=== PATIENT | female | born 1945 | race African-American/Black ===

== ENCOUNTER 2022-08-04 03:55 | Inpatient (IN) ==
[2022-08-04] MEDS ORDERED: methylPREDNISolone SOD SUC 125 MG/2 ML VIAL IV STA (04:18)
[2022-08-04] MEDS ORDERED: ONDANSETRON 4 MG/2 ML VIAL IV STA (04:18)
[2022-08-04] MEDS ORDERED: FUROSEMIDE 100 MG/10 ML VIAL IV STA (04:18)
[2022-08-04] MEDS ORDERED: NITROGLYCERIN 2% OINT 1 INCH/GM PACK TOP STA (04:18)
[2022-08-04] MEDS ORDERED: ALBUTEROL/IPRATROPIUM 3 ML NEB RESP TX STA (04:18)
[2022-08-04 04:26] LABS: Basophils # 0.1 10*3/uL (0.0-0.2); Basophils % 0.4 % (0.0-0.8); Eosinophils % 0.3 % (0.00-10.9); Immature Granulocytes Absolute 0.29 #; Lymphocytes # 1.5 10*3/uL (1.4-4.0); Lymphocytes % 9.9 % (21.3-54.2); Mean Corpuscular HGB Conc 28.2 GM/DL (32-36); Mean Corpuscular Volume 113.4 FL (87-102); Mean Platelet Volume 9.6 FL (9.6-12.0); Monocytes # 0.9 10*3/uL (0.11-0.8); Monocytes % 6.1 % (1.7-12.7); NRBC # 0.03 10*3/uL; Neutrophils % 81.3 % (38.7-73.9); Platelet Count 247 T/CUMM (130-400); Red Blood Count 3.88 MC/CUMM (3.8-5.5); Red Cell Distribution Width 18.2 % (9.3-17.3); White Blood Count 14.8 T/CUMM (4-12)
[2022-08-04 04:27] LABS: Hemoglobin 12.4 GM/DL (12.0-16.0)
[2022-08-04 04:43] LABS: ABG Base Excess 6.1 MMOL/L (-2.5-2.5); ABG HCO3 29.9 MMOL/L (20-26); ABG Oxygen Saturation 97.3 % (95-100); ABG TCO2 36.5 MMOL/L (23-27); Allen Test Positive
[2022-08-04 04:43] LABS: PT Patient Result 10.8 SECS (10.1-12.1)
[2022-08-04 04:44] LABS: Macrocytosis Slight; Polychromasia Slight; Stomatocytes Slight
[2022-08-04 04:45] LABS: Basophilic Stippling Slight
[2022-08-04 04:45] LABS: ABG PH 7.165 (7.35-7.45)
[2022-08-04 04:46] LABS: Platelet Estimate Adequate
[2022-08-04 04:48] LABS: Alanine Aminotransferase 36 U/L (13-56); Albumin 3.5 G/DL (3.4-5.0); Alkaline Phosphatase 173 U/L (45-117); Aspartate Amino Transferase 37 U/L (0-37); Bilirubin,Total < 0.39 MG/DL (0.20-1.00); Blood Urea Nitrogen 12 MG/DL (7-18); Carbon Dioxide 42 MMOL/L (21-32); Chloride 102 MMOL/L (98-107); Glucose 240 MG/DL (74-106); Osmolality,Calculated 290.1 MOS/KG (273-304); Sodium 142 MMOL/L (136-145); Total Protein 7.4 G/DL (6.4-8.2)
[2022-08-04] MEDS ORDERED: ETOMIDATE 20 MG/10 ML VIAL IV ONE (04:48)
[2022-08-04] MEDS ORDERED: VECURONIUM 10 MG VIAL IV ONE (04:48)
[2022-08-04] MEDS ORDERED: VECURONIUM 10 MG VIAL IV STA (05:04)
[2022-08-04] MEDS ORDERED: ETOMIDATE 20 MG/10 ML VIAL IV STA (05:04)
[2022-08-04 05:12] LABS: Bilirubin,Urine Negative (Negative); Blood, Urine Small mg/dL (Negative); Glucose,Urine (UA) 50 mg/dL (Negative); Hyaline Casts,Urine 7 /LPF (0-3); Ketones,Urine Negative (Negative); Mucus,Urine Occasional /LPF (Occasional); Nitrite,Urine Negative (Negative); Protein,Urine 100 mg/dL (Negative); RBC,Urine 1 /HPF (0-4); Urine Appearance Slightly Hazy (Clear); Urine Color Yellow (Yellow); Urine Specific Gravity 1.018 (1.001-1.035); Urine Urobilinogen < 2.0 eU/dL (<2.0)
[2022-08-04 05:16] LABS: Barbiturates Screen,Urine Negative (Negative); Benzodiazepines Screen,Urine Negative (Negative); Cannabinoid Screen,Urine Negative (Negative); Opiate Screen,Urine Negative (Negative); Phencyclidine Screen,Urine Negative (Negative)
[2022-08-04] MEDS ORDERED: ALBUTEROL 2.5 MG/3 ML NEB RESP TX PRN ×2 (06:12→06:14)
[2022-08-04] MEDS ORDERED: ONDANSETRON 4 MG/2 ML VIAL IV PRN (06:14)
[2022-08-04] MEDS ORDERED: ACETAMINOPHEN 325 MG TABLET PO PRN (06:14)
[2022-08-04] MEDS ORDERED: LACTULOSE 20 GM/30 ML UDCUP PO PRN (06:14)
[2022-08-04] MEDS ORDERED: GLUCAGON 1 MG VIAL IM PRN (06:21)
[2022-08-04] MEDS ORDERED: DEXTROSE 10% 250 ML BAG IV PRN (06:23)
[2022-08-04] MEDS ORDERED: SODIUM CHLORIDE 0.9% 1,000 ML IV SCH (06:30)
[2022-08-04] MEDS: PANTOPRAZOLE 40 MG VIAL IV SCH (06:33)
[2022-08-04] MEDS: cefTRIAXone 2,000 MG in SODIUM CHLORIDE 0.9% 100 ML IV SCH (06:34)
[2022-08-04] MEDS: AZITHROMYCIN INJ 500 MG in SODIUM CHLORIDE 0.9% 250 ML IV SCH (06:37)
[2022-08-04] MEDS: ALBUTEROL/IPRATROPIUM 3 ML NEB RESP TX SCH ×3 (07:25→19:36)
[2022-08-04] MEDS: methylPREDNISolone SOD SUC 40 MG/1 ML VIAL IV SCH ×3 (10:23→23:49)
[2022-08-04] MEDS: ENOXAPARIN 40 MG/0.4 ML SYRINGE SUBCUT SCH (10:26)
[2022-08-04] MEDS: INSULIN GLARGINE 100 UNIT/ML SUBCUT SCH ×2 (11:42→22:01)
[2022-08-04 11:50] LABS: Arterial Base Excess iSTAT 15 MMOL/L (-2.5-2.5); Arterial Bicarbonate iSTAT 44.6 MMOL/L (20-26); Arterial O2 Saturation iSTAT 87 % (95-100); Arterial PCO2 iSTAT 77 MM HG (35-48); Arterial PO2 iSTAT 59 MM HG (80-95); Arterial Total CO2 iSTAT 47 MMO/L (23-27); Arterial pH iSTAT 7.369 (7.35-7.45)
[2022-08-04] MEDS: INSULIN LISPRO 100 UNIT/ML SUBCUT SCH ×3 (12:05→23:49)
[2022-08-04] MEDS ORDERED: FUROSEMIDE 40 MG/4 ML VIAL IV ONE (12:19)
[2022-08-04 15:13] LABS: Arterial Base Excess iSTAT 21 MMOL/L (-2.5-2.5); Arterial Bicarbonate iSTAT 46.5 MMOL/L (20-26); Arterial O2 Saturation iSTAT 97 % (95-100); Arterial PCO2 iSTAT 53 MM HG (35-48); Arterial PO2 iSTAT 78 MM HG (80-95); Arterial Total CO2 iSTAT 48 MMO/L (23-27); Arterial pH iSTAT 7.551 (7.35-7.45)
[2022-08-04 20:43] LABS: Basophils % 0.2 % (0.0-0.8); Hematocrit 43.3 VOL% (35.7-47.0); Hemoglobin 12.8 GM/DL (12.0-16.0); Immature Granulocytes % 1.7 %; Immature Granulocytes Absolute 0.23 #; Lymphocytes # 1.2 10*3/uL (1.4-4.0); Mean Corpuscular HGB Conc 29.6 GM/DL (32-36); Mean Platelet Volume 9.8 FL (9.6-12.0); Monocytes # 1.1 10*3/uL (0.11-0.8); Monocytes % 8.5 % (1.7-12.7); NRBC # 0.04 10*3/uL; Neutrophils % 80.6 % (38.7-73.9); Platelet Count 236 T/CUMM (130-400); Red Blood Count 4.01 MC/CUMM (3.8-5.5); Red Cell Distribution Width 17.8 % (9.3-17.3); White Blood Count 13.2 T/CUMM (4-12)
[2022-08-05] MEDS: ALBUTEROL/IPRATROPIUM 3 ML NEB RESP TX SCH ×4 (00:43→19:35)
[2022-08-05 03:15] LABS: Basophils % 0.2 % (0.0-0.8); Hemoglobin 12.2 GM/DL (12.0-16.0); Immature Granulocytes % 1.1 %; Immature Granulocytes Absolute 0.15 #; Lymphocytes % 7.2 % (21.3-54.2); Mean Corpuscular HGB Conc 30.5 GM/DL (32-36); Mean Corpuscular Volume 103.6 FL (87-102); Mean Platelet Volume 9.8 FL (9.6-12.0); Monocytes # 1.1 10*3/uL (0.11-0.8); Monocytes % 8.4 % (1.7-12.7); NRBC # 0.07 10*3/uL; Neutrophils % 83.1 % (38.7-73.9); Platelet Count 260 T/CUMM (130-400); Red Blood Count 3.86 MC/CUMM (3.8-5.5); Red Cell Distribution Width 18.3 % (9.3-17.3); White Blood Count 13.1 T/CUMM (4-12)
[2022-08-05 03:34] LABS: Albumin 2.9 G/DL (3.4-5.0); Bilirubin,Total 0.6 MG/DL (0.20-1.00); Calcium 8.7 MG/DL (8.5-10.1); Osmolality,Calculated 285.1 MOS/KG (273-304); Potassium 2.9 MMOL/L (3.5-5.1); Total Protein 6.5 G/DL (6.4-8.2)
[2022-08-05 04:00] LABS: Arterial Base Excess iSTAT 23 MMOL/L (-2.5-2.5); Arterial Bicarbonate iSTAT 46.5 MMOL/L (20-26); Arterial O2 Saturation iSTAT 100 % (95-100); Arterial PCO2 iSTAT 44 MM HG (35-48); Arterial PO2 iSTAT 138 MM HG (80-95); Arterial Total CO2 iSTAT 48 MMO/L (23-27); Arterial pH iSTAT 7.636 (7.35-7.45)
[2022-08-05] MEDS: methylPREDNISolone SOD SUC 40 MG/1 ML VIAL IV SCH ×4 (05:36→22:02)
[2022-08-05] MEDS: cefTRIAXone 2,000 MG in SODIUM CHLORIDE 0.9% 100 ML IV SCH (05:36)
[2022-08-05] MEDS: PANTOPRAZOLE 40 MG VIAL IV SCH (05:37)
[2022-08-05] MEDS: INSULIN LISPRO 100 UNIT/ML SUBCUT SCH ×3 (05:45→18:08)
[2022-08-05] MEDS: AZITHROMYCIN INJ 500 MG in SODIUM CHLORIDE 0.9% 250 ML IV SCH (06:10)
[2022-08-05] MEDS: POTASSIUM BICARB EFFERVESCENT 20 MEQ TAB.EFF PER TUBE PRN ×6 (06:31→16:51)
[2022-08-05] MEDS: ENOXAPARIN 40 MG/0.4 ML SYRINGE SUBCUT SCH (08:03)
[2022-08-05] MEDS ORDERED: hydrALAZINE 20 MG/1 ML VIAL IV PRN (09:21)
[2022-08-05] MEDS: LACTULOSE 20 GM/30 ML UDCUP PO SCH ×2 (09:36→21:15)
[2022-08-05] MEDS: MORPHINE 2 MG/1 ML SYRINGE IV PRN (09:47)
[2022-08-05 13:18] LABS: Calcium 8.3 MG/DL (8.5-10.1); Osmolality,Calculated 291.7 MOS/KG (273-304); Potassium 3.5 MMOL/L (3.5-5.1)
[2022-08-05] MEDS: amLODIPine 10 MG TABLET PO SCH (13:55)
[2022-08-05] MEDS: DESITIN 4OZ/NYSTATIN 15 GRAM MIXTURE PASTE TOP SCH ×2 (15:33→21:16)
[2022-08-05] MEDS: carvediloL 25 MG TABLET PO SCH (16:50)
[2022-08-05] MEDS: INSULIN GLARGINE 100 UNIT/ML SUBCUT SCH (21:15)
[2022-08-05] MEDS: buPROPion SR 150 MG TABLET PO SCH (21:15)
[2022-08-06] MEDS: INSULIN LISPRO 100 UNIT/ML SUBCUT SCH ×4 (00:07→17:45)
[2022-08-06] MEDS: ALBUTEROL/IPRATROPIUM 3 ML NEB RESP TX SCH ×4 (00:40→20:01)
[2022-08-06 03:52] LABS: Albumin 2.7 G/DL (3.4-5.0); Bilirubin,Total 0.5 MG/DL (0.20-1.00); Calcium 7.8 MG/DL (8.5-10.1); Osmolality,Calculated 296.6 MOS/KG (273-304); Total Protein 6.1 G/DL (6.4-8.2)
[2022-08-06] MEDS: POTASSIUM BICARB EFFERVESCENT 20 MEQ TAB.EFF PER TUBE PRN ×4 (04:02→09:58)
[2022-08-06 05:05] LABS: Arterial Base Excess iSTAT 13 MMOL/L (-2.5-2.5); Arterial Bicarbonate iSTAT 37.7 MMOL/L (20-26); Arterial O2 Saturation iSTAT 98 % (95-100); Arterial PCO2 iSTAT 46 MM HG (35-48); Arterial PO2 iSTAT 103 MM HG (80-95); Arterial Total CO2 iSTAT 39 MMO/L (23-27); Arterial pH iSTAT 7.522 (7.35-7.45)
[2022-08-06 05:14] LABS: Basophils % 0.1 % (0.0-0.8); Hematocrit 36.8 VOL% (35.7-47.0); Hemoglobin 11.6 GM/DL (12.0-16.0); Immature Granulocytes % 0.9 %; Immature Granulocytes Absolute 0.13 #; Lymphocytes # 0.9 10*3/uL (1.4-4.0); Lymphocytes % 6.3 % (21.3-54.2); Mean Corpuscular HGB Conc 31.5 GM/DL (32-36); Mean Corpuscular Volume 98.9 FL (87-102); Mean Platelet Volume 10.7 FL (9.6-12.0); NRBC # 0.07 10*3/uL; Neutrophils % 85.7 % (38.7-73.9); Platelet Count 265 T/CUMM (130-400); Red Blood Count 3.72 MC/CUMM (3.8-5.5); Red Cell Distribution Width 18.3 % (9.3-17.3); White Blood Count 14.1 T/CUMM (4-12)
[2022-08-06] MEDS: AZITHROMYCIN INJ 500 MG in SODIUM CHLORIDE 0.9% 250 ML IV SCH (05:30)
[2022-08-06] MEDS: cefTRIAXone 2,000 MG in SODIUM CHLORIDE 0.9% 100 ML IV SCH (05:46)
[2022-08-06] MEDS: LEVOTHYROXINE 125 MCG TABLET PO SCH (05:47)
[2022-08-06] MEDS: PANTOPRAZOLE 40 MG VIAL IV SCH (05:48)
[2022-08-06] MEDS: methylPREDNISolone SOD SUC 40 MG/1 ML VIAL IV SCH ×4 (05:48→23:24)
[2022-08-06] MEDS: carvediloL 25 MG TABLET PO SCH ×2 (07:55→16:13)
[2022-08-06] MEDS ORDERED: FUROSEMIDE 40 MG/4 ML VIAL IV ONE (08:08)
[2022-08-06] MEDS: buPROPion SR 150 MG TABLET PO SCH ×2 (09:58→21:11)
[2022-08-06] MEDS: amLODIPine 10 MG TABLET PO SCH (09:58)
[2022-08-06] MEDS: POTASSIUM CHLORIDE 10 MEQ TABLET PO SCH (09:58)
[2022-08-06] MEDS: DESITIN 4OZ/NYSTATIN 15 GRAM MIXTURE PASTE TOP SCH ×2 (09:59→21:12)
[2022-08-06] MEDS: ENOXAPARIN 40 MG/0.4 ML SYRINGE SUBCUT SCH (09:59)
[2022-08-06] MEDS: LACTULOSE 20 GM/30 ML UDCUP PO SCH (10:11)
[2022-08-06] MEDS: hydrALAZINE 25 MG TABLET PO SCH ×2 (11:37→21:11)
[2022-08-06] MEDS: INSULIN GLARGINE 100 UNIT/ML SUBCUT SCH (21:11)
[2022-08-07] MEDS: ALBUTEROL/IPRATROPIUM 3 ML NEB RESP TX SCH ×4 (00:27→19:02)
[2022-08-07] MEDS: INSULIN LISPRO 100 UNIT/ML SUBCUT SCH ×5 (00:46→23:30)
[2022-08-07 03:31] LABS: Basophils % 0.1 % (0.0-0.8); Hematocrit 35.8 VOL% (35.7-47.0); Hemoglobin 11.6 GM/DL (12.0-16.0); Immature Granulocytes % 1.1 %; Immature Granulocytes Absolute 0.15 #; Lymphocytes # 0.8 10*3/uL (1.4-4.0); Lymphocytes % 5.9 % (21.3-54.2); Mean Corpuscular HGB Conc 32.4 GM/DL (32-36); Mean Corpuscular Volume 97.5 FL (87-102); Mean Platelet Volume 9.8 FL (9.6-12.0); Monocytes # 0.9 10*3/uL (0.11-0.8); Monocytes % 6.3 % (1.7-12.7); Neutrophils % 86.6 % (38.7-73.9); Platelet Count 249 T/CUMM (130-400); Red Blood Count 3.67 MC/CUMM (3.8-5.5); Red Cell Distribution Width 18.6 % (9.3-17.3); White Blood Count 13.6 T/CUMM (4-12)
[2022-08-07 03:44] LABS: Albumin 2.6 G/DL (3.4-5.0); Bilirubin,Total 0.5 MG/DL (0.20-1.00); Calcium 7.8 MG/DL (8.5-10.1); Potassium 2.8 MMOL/L (3.5-5.1)
[2022-08-07 04:27] LABS: Arterial Base Excess iSTAT 5 MMOL/L (-2.5-2.5); Arterial Bicarbonate iSTAT 29.3 MMOL/L (20-26); Arterial O2 Saturation iSTAT 98 % (95-100); Arterial PCO2 iSTAT 41 MM HG (35-48); Arterial PO2 iSTAT 94 MM HG (80-95); Arterial Total CO2 iSTAT 31 MMO/L (23-27); Arterial pH iSTAT 7.463 (7.35-7.45)
[2022-08-07] MEDS: AZITHROMYCIN INJ 500 MG in SODIUM CHLORIDE 0.9% 250 ML IV SCH (04:45)
[2022-08-07] MEDS: cefTRIAXone 2,000 MG in SODIUM CHLORIDE 0.9% 100 ML IV SCH (05:34)
[2022-08-07] MEDS: methylPREDNISolone SOD SUC 40 MG/1 ML VIAL IV SCH ×3 (05:34→20:15)
[2022-08-07] MEDS: PANTOPRAZOLE 40 MG VIAL IV SCH (05:34)
[2022-08-07] MEDS: LEVOTHYROXINE 125 MCG TABLET PO SCH (05:34)
[2022-08-07] MEDS: POTASSIUM BICARB EFFERVESCENT 20 MEQ TAB.EFF PER TUBE PRN ×4 (05:34→17:55)
[2022-08-07] MEDS: carvediloL 25 MG TABLET PO SCH ×2 (09:28→17:54)
[2022-08-07] MEDS: buPROPion SR 150 MG TABLET PO SCH ×2 (09:28→11:37)
[2022-08-07] MEDS: hydrALAZINE 25 MG TABLET PO SCH ×2 (09:29→20:39)
[2022-08-07] MEDS: amLODIPine 10 MG TABLET PO SCH (09:29)
[2022-08-07] MEDS: POTASSIUM CHLORIDE 10 MEQ TABLET PO SCH (09:29)
[2022-08-07] MEDS: DESITIN 4OZ/NYSTATIN 15 GRAM MIXTURE PASTE TOP SCH ×2 (09:31→20:39)
[2022-08-07] MEDS: ENOXAPARIN 40 MG/0.4 ML SYRINGE SUBCUT SCH (09:31)
[2022-08-07] MEDS: buPROPion 75 MG TABLET PO SCH ×2 (10:58→20:16)
[2022-08-07 15:05] VITALS: BP 122/84
[2022-08-07] MEDS: INSULIN GLARGINE 100 UNIT/ML SUBCUT SCH (20:16)
[2022-08-08 00:17] LABS: Calcium 7.9 MG/DL (8.5-10.1); Osmolality,Calculated 298.8 MOS/KG (273-304)
[2022-08-08] MEDS: POTASSIUM BICARB EFFERVESCENT 20 MEQ TAB.EFF PER TUBE PRN ×4 (00:32→08:58)
[2022-08-08] MEDS: ALBUTEROL/IPRATROPIUM 3 ML NEB RESP TX SCH ×4 (00:52→19:28)
[2022-08-08 03:43] LABS: Basophils % 0.1 % (0.0-0.8); Hematocrit 36.7 VOL% (35.7-47.0); Hemoglobin 11.9 GM/DL (12.0-16.0); Immature Granulocytes % 1.4 %; Immature Granulocytes Absolute 0.17 #; Lymphocytes # 0.8 10*3/uL (1.4-4.0); Lymphocytes % 6.2 % (21.3-54.2); Mean Corpuscular HGB Conc 32.4 GM/DL (32-36); Mean Corpuscular Volume 97.3 FL (87-102); Monocytes # 0.8 10*3/uL (0.11-0.8); Monocytes % 6.4 % (1.7-12.7); NRBC # 0.09 10*3/uL; Neutrophils % 85.9 % (38.7-73.9); Platelet Count 250 T/CUMM (130-400); Red Blood Count 3.77 MC/CUMM (3.8-5.5); Red Cell Distribution Width 18.6 % (9.3-17.3); White Blood Count 12.6 T/CUMM (4-12)
[2022-08-08] MEDS: MORPHINE 2 MG/1 ML SYRINGE IV PRN (03:46)
[2022-08-08] MEDS: DESITIN 4OZ/NYSTATIN 15 GRAM MIXTURE PASTE TOP SCH ×3 (03:50→21:24)
[2022-08-08] MEDS: SKIN HEALING OINT (AQUAPHOR) 50 GM TUBE TOP PRN (03:50)
[2022-08-08 04:12] LABS: Arterial Base Excess iSTAT 1 MMOL/L (-2.5-2.5); Arterial Bicarbonate iSTAT 24.2 MMOL/L (20-26); Arterial O2 Saturation iSTAT 98 % (95-100); Arterial PCO2 iSTAT 34 MM HG (35-48); Arterial PO2 iSTAT 90 MM HG (80-95); Arterial Total CO2 iSTAT 25 MMO/L (23-27); Arterial pH iSTAT 7.461 (7.35-7.45)
[2022-08-08] MEDS: INSULIN LISPRO 100 UNIT/ML SUBCUT SCH ×3 (05:18→17:24)
[2022-08-08 05:22] LABS: Calcium 7.7 MG/DL (8.5-10.1); Osmolality,Calculated 300.6 MOS/KG (273-304); Potassium 3.5 MMOL/L (3.5-5.1)
[2022-08-08] MEDS: cefTRIAXone 2,000 MG in SODIUM CHLORIDE 0.9% 100 ML IV SCH (05:50)
[2022-08-08] MEDS: PANTOPRAZOLE 40 MG VIAL IV SCH (05:55)
[2022-08-08] MEDS: LEVOTHYROXINE 125 MCG TABLET PO SCH (05:59)
[2022-08-08] MEDS: AZITHROMYCIN INJ 500 MG in SODIUM CHLORIDE 0.9% 250 ML IV SCH (06:34)
[2022-08-08 08:43] LABS: Arterial Base Excess iSTAT 1 MMOL/L (-2.5-2.5); Arterial Bicarbonate iSTAT 25.7 MMOL/L (20-26); Arterial O2 Saturation iSTAT 99 % (95-100); Arterial PCO2 iSTAT 38 MM HG (35-48); Arterial PO2 iSTAT 159 MM HG (80-95); Arterial Total CO2 iSTAT 27 MMO/L (23-27); Arterial pH iSTAT 7.433 (7.35-7.45)
[2022-08-08] MEDS: buPROPion 75 MG TABLET PO SCH (08:58)
[2022-08-08] MEDS: hydrALAZINE 25 MG TABLET PO SCH ×2 (08:58→20:39)
[2022-08-08] MEDS: amLODIPine 10 MG TABLET PO SCH (08:58)
[2022-08-08] MEDS: carvediloL 25 MG TABLET PO SCH ×2 (08:58→17:25)
[2022-08-08] MEDS: methylPREDNISolone SOD SUC 40 MG/1 ML VIAL IV SCH ×2 (09:00→20:39)
[2022-08-08] MEDS: POTASSIUM CHLORIDE 10 MEQ TABLET PO SCH (09:00)
[2022-08-08] MEDS: MULTIVITAMIN LIQUID (CENTRUM) 60 ML BOTTLE PO SCH (09:02)
[2022-08-08] MEDS: ENOXAPARIN 40 MG/0.4 ML SYRINGE SUBCUT SCH (09:04)
[2022-08-08] MEDS: buPROPion SR 150 MG TABLET PO SCH (20:39)
[2022-08-08] MEDS: ACETAMINOPHEN/CODEINE 300-30 MG TABLET PO PRN (21:10)
[2022-08-08] MEDS: INSULIN GLARGINE 100 UNIT/ML SUBCUT SCH (21:24)
[2022-08-08] MEDS: QUEtiapine 100 MG TABLET PO SCH (23:12)
[2022-08-09] MEDS: ALBUTEROL/IPRATROPIUM 3 ML NEB RESP TX SCH ×4 (01:00→19:11)
[2022-08-09] MEDS: ACETAMINOPHEN/CODEINE 300-30 MG TABLET PO PRN ×3 (03:54→21:00)
[2022-08-09] MEDS: INSULIN LISPRO 100 UNIT/ML SUBCUT SCH ×5 (04:16→21:02)
[2022-08-09 04:23] LABS: Basophils % 0.1 % (0.0-0.8); Hematocrit 39.6 VOL% (35.7-47.0); Hemoglobin 12.3 GM/DL (12.0-16.0); Immature Granulocytes % 1.5 %; Immature Granulocytes Absolute 0.18 #; Lymphocytes # 0.5 10*3/uL (1.4-4.0); Lymphocytes % 4.6 % (21.3-54.2); Mean Corpuscular HGB Conc 31.1 GM/DL (32-36); Mean Corpuscular Volume 102.3 FL (87-102); Mean Platelet Volume 10.2 FL (9.6-12.0); Monocytes # 0.6 10*3/uL (0.11-0.8); Monocytes % 5.3 % (1.7-12.7); NRBC # 0.04 10*3/uL; Neutrophils % 88.5 % (38.7-73.9); Platelet Count 259 T/CUMM (130-400); Red Blood Count 3.87 MC/CUMM (3.8-5.5); Red Cell Distribution Width 19.3 % (9.3-17.3); White Blood Count 11.7 T/CUMM (4-12)
[2022-08-09 04:32] LABS: Calcium 7.8 MG/DL (8.5-10.1); Osmolality,Calculated 298.6 MOS/KG (273-304); Potassium 3.9 MMOL/L (3.5-5.1)
[2022-08-09 04:56] LABS: Arterial Base Excess iSTAT 0 MMOL/L (-2.5-2.5); Arterial Bicarbonate iSTAT 27.2 MMOL/L (20-26); Arterial O2 Saturation iSTAT 97 % (95-100); Arterial PCO2 iSTAT 55 MM HG (35-48); Arterial PO2 iSTAT 98 MM HG (80-95); Arterial Total CO2 iSTAT 29 MMO/L (23-27); Arterial pH iSTAT 7.302 (7.35-7.45)
[2022-08-09 05:20] LABS: Lymphocytes 8 % (20-55); Platelet Estimate Normal; Total Cells Counted 100
[2022-08-09] MEDS: cefTRIAXone 2,000 MG in SODIUM CHLORIDE 0.9% 100 ML IV SCH (06:03)
[2022-08-09] MEDS: AZITHROMYCIN INJ 500 MG in SODIUM CHLORIDE 0.9% 250 ML IV SCH (06:03)
[2022-08-09] MEDS: PANTOPRAZOLE 40 MG VIAL IV SCH (06:22)
[2022-08-09] MEDS: LEVOTHYROXINE 125 MCG TABLET PO SCH (06:25)
[2022-08-09] MEDS: amLODIPine 10 MG TABLET PO SCH (09:19)
[2022-08-09] MEDS: POTASSIUM BICARB EFFERVESCENT 20 MEQ TAB.EFF PER TUBE PRN (09:19)
[2022-08-09] MEDS: buPROPion SR 150 MG TABLET PO SCH ×2 (09:19→21:01)
[2022-08-09] MEDS: carvediloL 25 MG TABLET PO SCH ×2 (09:19→17:50)
[2022-08-09] MEDS: POTASSIUM CHLORIDE 10 MEQ TABLET PO SCH (09:19)
[2022-08-09] MEDS: hydrALAZINE 25 MG TABLET PO SCH ×2 (09:19→21:01)
[2022-08-09] MEDS: methylPREDNISolone SOD SUC 40 MG/1 ML VIAL IV SCH ×2 (09:20→21:01)
[2022-08-09] MEDS: DESITIN 4OZ/NYSTATIN 15 GRAM MIXTURE PASTE TOP SCH ×2 (09:21→22:27)
[2022-08-09] MEDS: ENOXAPARIN 40 MG/0.4 ML SYRINGE SUBCUT SCH (09:21)
[2022-08-09] MEDS: MULTIVITAMIN LIQUID (CENTRUM) 60 ML BOTTLE PO SCH (09:24)
[2022-08-09] MEDS: ATORVASTATIN 80 MG TABLET PO SCH (21:01)
[2022-08-09] MEDS: QUEtiapine 100 MG TABLET PO SCH (21:01)
[2022-08-09] MEDS: INSULIN GLARGINE 100 UNIT/ML SUBCUT SCH (21:02)
[2022-08-10] MEDS: ALBUTEROL/IPRATROPIUM 3 ML NEB RESP TX SCH ×4 (00:30→19:54)
[2022-08-10 04:03] LABS: Arterial Base Excess iSTAT 1 MMOL/L (-2.5-2.5); Arterial Bicarbonate iSTAT 27.9 MMOL/L (20-26); Arterial O2 Saturation iSTAT 97 % (95-100); Arterial PCO2 iSTAT 54 MM HG (35-48); Arterial PO2 iSTAT 103 MM HG (80-95); Arterial Total CO2 iSTAT 29 MMO/L (23-27); Arterial pH iSTAT 7.324 (7.35-7.45)
[2022-08-10 05:03] LABS: Basophils % 0.3 % (0.0-0.8); Hemoglobin 12.3 GM/DL (12.0-16.0); Immature Granulocytes % 2.2 %; Immature Granulocytes Absolute 0.24 #; Lymphocytes # 0.6 10*3/uL (1.4-4.0); Lymphocytes % 5.3 % (21.3-54.2); Mean Corpuscular HGB Conc 30.8 GM/DL (32-36); Mean Corpuscular Volume 102.6 FL (87-102); Mean Platelet Volume 10.1 FL (9.6-12.0); Monocytes # 0.7 10*3/uL (0.11-0.8); Monocytes % 6.7 % (1.7-12.7); NRBC # 0.03 10*3/uL; Neutrophils % 85.5 % (38.7-73.9); Platelet Count 252 T/CUMM (130-400); Red Cell Distribution Width 19.2 % (9.3-17.3)
[2022-08-10 05:22] LABS: Calcium 8.1 MG/DL (8.5-10.1); Osmolality,Calculated 297.7 MOS/KG (273-304); Potassium 3.9 MMOL/L (3.5-5.1)
[2022-08-10] MEDS: LEVOTHYROXINE 125 MCG TABLET PO SCH (05:38)
[2022-08-10] MEDS: AZITHROMYCIN INJ 500 MG in SODIUM CHLORIDE 0.9% 250 ML IV SCH (05:39)
[2022-08-10] MEDS: ACETAMINOPHEN/CODEINE 300-30 MG TABLET PO PRN ×3 (05:39→20:34)
[2022-08-10] MEDS: PANTOPRAZOLE 40 MG VIAL IV SCH (05:40)
[2022-08-10] MEDS: SKIN HEALING OINT (AQUAPHOR) 50 GM TUBE TOP PRN (06:05)
[2022-08-10] MEDS: buPROPion SR 150 MG TABLET PO SCH ×2 (09:34→20:32)
[2022-08-10] MEDS: ASPIRIN CHEW 81 MG TABLET PO SCH (09:34)
[2022-08-10] MEDS: POTASSIUM CHLORIDE 10 MEQ TABLET PO SCH (09:34)
[2022-08-10] MEDS: methylPREDNISolone SOD SUC 40 MG/1 ML VIAL IV SCH ×2 (09:34→20:34)
[2022-08-10] MEDS: hydrALAZINE 25 MG TABLET PO SCH ×2 (09:35→20:34)
[2022-08-10] MEDS: amLODIPine 10 MG TABLET PO SCH (09:35)
[2022-08-10] MEDS: carvediloL 25 MG TABLET PO SCH ×2 (09:35→17:33)
[2022-08-10] MEDS: MULTIVITAMIN LIQUID (CENTRUM) 60 ML BOTTLE PO SCH (09:35)
[2022-08-10] MEDS: ENOXAPARIN 40 MG/0.4 ML SYRINGE SUBCUT SCH (09:37)
[2022-08-10] MEDS: INSULIN LISPRO 100 UNIT/ML SUBCUT SCH ×4 (09:37→20:35)
[2022-08-10] MEDS: DESITIN 4OZ/NYSTATIN 15 GRAM MIXTURE PASTE TOP SCH ×2 (09:38→20:45)
[2022-08-10] MEDS: ATORVASTATIN 80 MG TABLET PO SCH (20:32)
[2022-08-10] MEDS: QUEtiapine 100 MG TABLET PO SCH (20:32)
[2022-08-10] MEDS: INSULIN GLARGINE 100 UNIT/ML SUBCUT SCH (20:34)
[2022-08-11] MEDS: ALBUTEROL/IPRATROPIUM 3 ML NEB RESP TX SCH ×4 (00:04→19:33)
[2022-08-11 05:52] LABS: Basophils % 0.2 % (0.0-0.8); Eosinophils # 0.1 10*3/uL (0.0-0.87); Eosinophils % 0.5 % (0.00-10.9); Hemoglobin 12.4 GM/DL (12.0-16.0); Immature Granulocytes % 3.3 %; Immature Granulocytes Absolute 0.44 #; Lymphocytes # 1.1 10*3/uL (1.4-4.0); Lymphocytes % 8.1 % (21.3-54.2); Mean Corpuscular HGB Conc 30.2 GM/DL (32-36); Mean Corpuscular Volume 103.5 FL (87-102); Mean Platelet Volume 10.3 FL (9.6-12.0); Monocytes # 1.2 10*3/uL (0.11-0.8); Monocytes % 9.1 % (1.7-12.7); Neutrophils % 78.8 % (38.7-73.9); Platelet Count 265 T/CUMM (130-400); Red Blood Count 3.96 MC/CUMM (3.8-5.5); Red Cell Distribution Width 19.3 % (9.3-17.3); White Blood Count 13.2 T/CUMM (4-12)
[2022-08-11 06:11] LABS: Osmolality,Calculated 294.7 MOS/KG (273-304)
[2022-08-11] MEDS: AZITHROMYCIN INJ 500 MG in SODIUM CHLORIDE 0.9% 250 ML IV SCH (06:18)
[2022-08-11] MEDS: PANTOPRAZOLE 40 MG VIAL IV SCH (06:18)
[2022-08-11] MEDS: LEVOTHYROXINE 125 MCG TABLET PO SCH (06:18)
[2022-08-11] MEDS: ACETAMINOPHEN/CODEINE 300-30 MG TABLET PO PRN ×3 (06:20→20:23)
[2022-08-11] MEDS: methylPREDNISolone SOD SUC 40 MG/1 ML VIAL IV SCH ×2 (08:39→20:19)
[2022-08-11] MEDS: hydrALAZINE 25 MG TABLET PO SCH ×2 (08:40→20:19)
[2022-08-11] MEDS: amLODIPine 10 MG TABLET PO SCH (08:40)
[2022-08-11] MEDS: MULTIVITAMIN LIQUID (CENTRUM) 60 ML BOTTLE PO SCH (08:40)
[2022-08-11] MEDS: DESITIN 4OZ/NYSTATIN 15 GRAM MIXTURE PASTE TOP SCH ×2 (08:40→22:10)
[2022-08-11] MEDS: carvediloL 25 MG TABLET PO SCH ×2 (08:40→17:48)
[2022-08-11] MEDS: ENOXAPARIN 40 MG/0.4 ML SYRINGE SUBCUT SCH (08:40)
[2022-08-11] MEDS: INSULIN LISPRO 100 UNIT/ML SUBCUT SCH ×4 (08:40→20:19)
[2022-08-11] MEDS: POTASSIUM CHLORIDE 10 MEQ TABLET PO SCH (08:40)
[2022-08-11] MEDS: ASPIRIN CHEW 81 MG TABLET PO SCH (08:40)
[2022-08-11] MEDS: buPROPion SR 150 MG TABLET PO SCH ×2 (08:40→20:20)
[2022-08-11] MEDS: INSULIN GLARGINE 100 UNIT/ML SUBCUT SCH (20:19)
[2022-08-11] MEDS: QUEtiapine 100 MG TABLET PO SCH (20:20)
[2022-08-11] MEDS: ATORVASTATIN 80 MG TABLET PO SCH (20:20)
[2022-08-12] MEDS: ALBUTEROL/IPRATROPIUM 3 ML NEB RESP TX SCH ×4 (00:39→17:46)
[2022-08-12] MEDS: ACETAMINOPHEN/CODEINE 300-30 MG TABLET PO PRN ×5 (00:40→20:17)
[2022-08-12 05:48] LABS: Basophils % 0.3 % (0.0-0.8); Hematocrit 39.9 VOL% (35.7-47.0); Hemoglobin 12.4 GM/DL (12.0-16.0); Immature Granulocytes % 2.5 %; Lymphocytes # 0.6 10*3/uL (1.4-4.0); Lymphocytes % 4.9 % (21.3-54.2); Mean Corpuscular HGB Conc 31.1 GM/DL (32-36); Mean Corpuscular Volume 105.8 FL (87-102); Monocytes # 0.5 10*3/uL (0.11-0.8); Monocytes % 4.6 % (1.7-12.7); Neutrophils % 87.7 % (38.7-73.9); Platelet Count 167 T/CUMM (130-400); Red Blood Count 3.77 MC/CUMM (3.8-5.5); Red Cell Distribution Width 18.7 % (9.3-17.3); White Blood Count 11.8 T/CUMM (4-12)
[2022-08-12 05:56] LABS: Calcium 8.5 MG/DL (8.5-10.1); Osmolality,Calculated 288.1 MOS/KG (273-304); Potassium 4.9 MMOL/L (3.5-5.1)
[2022-08-12] MEDS: LEVOTHYROXINE 125 MCG TABLET PO SCH (06:05)
[2022-08-12] MEDS: PANTOPRAZOLE 40 MG VIAL IV SCH (06:05)
[2022-08-12 06:07] LABS: Lymphocytes 7 % (20-55); Total Cells Counted 100
[2022-08-12 06:08] LABS: Macrocytosis 1+; Target Cells Slight
[2022-08-12] MEDS: methylPREDNISolone SOD SUC 40 MG/1 ML VIAL IV SCH ×2 (08:00→20:15)
[2022-08-12] MEDS: INSULIN LISPRO 100 UNIT/ML SUBCUT SCH ×4 (08:01→20:16)
[2022-08-12] MEDS: hydrALAZINE 25 MG TABLET PO SCH ×2 (08:01→20:15)
[2022-08-12] MEDS: carvediloL 25 MG TABLET PO SCH ×2 (08:01→16:18)
[2022-08-12] MEDS: MULTIVITAMIN LIQUID (CENTRUM) 60 ML BOTTLE PO SCH (08:02)
[2022-08-12] MEDS: ASPIRIN CHEW 81 MG TABLET PO SCH (08:02)
[2022-08-12] MEDS: ENOXAPARIN 40 MG/0.4 ML SYRINGE SUBCUT SCH (08:02)
[2022-08-12] MEDS: buPROPion SR 150 MG TABLET PO SCH ×2 (08:02→20:15)
[2022-08-12] MEDS: DESITIN 4OZ/NYSTATIN 15 GRAM MIXTURE PASTE TOP SCH ×2 (08:02→20:17)
[2022-08-12] MEDS: POTASSIUM CHLORIDE 10 MEQ TABLET PO SCH (08:02)
[2022-08-12] MEDS: amLODIPine 10 MG TABLET PO SCH (08:02)
[2022-08-12] MEDS: QUEtiapine 100 MG TABLET PO SCH (20:15)
[2022-08-12] MEDS: ATORVASTATIN 80 MG TABLET PO SCH (20:15)
[2022-08-12] MEDS: INSULIN GLARGINE 100 UNIT/ML SUBCUT SCH (20:16)
[2022-08-13] MEDS: ACETAMINOPHEN/CODEINE 300-30 MG TABLET PO PRN ×6 (00:29→23:00)
[2022-08-13] MEDS: ALBUTEROL/IPRATROPIUM 3 ML NEB RESP TX SCH ×4 (00:40→20:02)
[2022-08-13 04:39] LABS: Basophils # 0.1 10*3/uL (0.0-0.2); Basophils % 0.3 % (0.0-0.8); Hematocrit 40.7 VOL% (35.7-47.0); Hemoglobin 12.5 GM/DL (12.0-16.0); Immature Granulocytes % 2.8 %; Lymphocytes # 0.6 10*3/uL (1.4-4.0); Lymphocytes % 4.3 % (21.3-54.2); Mean Corpuscular HGB Conc 30.7 GM/DL (32-36); Mean Corpuscular Volume 103.8 FL (87-102); Mean Platelet Volume 10.4 FL (9.6-12.0); Monocytes # 0.7 10*3/uL (0.11-0.8); Monocytes % 4.9 % (1.7-12.7); Neutrophils % 87.7 % (38.7-73.9); Platelet Count 297 T/CUMM (130-400); Red Blood Count 3.92 MC/CUMM (3.8-5.5); Red Cell Distribution Width 18.5 % (9.3-17.3); White Blood Count 14.3 T/CUMM (4-12)
[2022-08-13 04:54] LABS: Calcium 8.3 MG/DL (8.5-10.1); Osmolality,Calculated 291.4 MOS/KG (273-304); Potassium 4.8 MMOL/L (3.5-5.1)
[2022-08-13 05:10] LABS: Band Neutrophils 1 % (0-10); Lymphocytes 5 % (20-55); Total Cells Counted 100
[2022-08-13 05:11] LABS: Hypochromia Slight; Macrocytosis 1+; Target Cells Slight
[2022-08-13 05:12] LABS: Platelet Estimate Normal
[2022-08-13] MEDS: PANTOPRAZOLE 40 MG VIAL IV SCH (06:19)
[2022-08-13] MEDS: LEVOTHYROXINE 125 MCG TABLET PO SCH (06:19)
[2022-08-13] MEDS: methylPREDNISolone SOD SUC 40 MG/1 ML VIAL IV SCH (08:09)
[2022-08-13] MEDS: INSULIN LISPRO 100 UNIT/ML SUBCUT SCH ×4 (08:09→20:34)
[2022-08-13] MEDS: ENOXAPARIN 40 MG/0.4 ML SYRINGE SUBCUT SCH (08:10)
[2022-08-13] MEDS: carvediloL 25 MG TABLET PO SCH ×2 (08:10→17:08)
[2022-08-13] MEDS: ASPIRIN CHEW 81 MG TABLET PO SCH (08:10)
[2022-08-13] MEDS: amLODIPine 10 MG TABLET PO SCH (08:10)
[2022-08-13] MEDS: POTASSIUM CHLORIDE 10 MEQ TABLET PO SCH (08:10)
[2022-08-13] MEDS: buPROPion SR 150 MG TABLET PO SCH ×2 (08:10→20:34)
[2022-08-13] MEDS: hydrALAZINE 25 MG TABLET PO SCH ×2 (08:11→20:34)
[2022-08-13] MEDS: MULTIVITAMIN LIQUID (CENTRUM) 60 ML BOTTLE PO SCH (08:12)
[2022-08-13] MEDS: DESITIN 4OZ/NYSTATIN 15 GRAM MIXTURE PASTE TOP SCH ×2 (08:42→20:34)
[2022-08-13] MEDS: predniSONE 20 MG TABLET PO SCH (08:48)
[2022-08-13] MEDS: QUEtiapine 100 MG TABLET PO SCH (20:34)
[2022-08-13] MEDS: ATORVASTATIN 80 MG TABLET PO SCH (20:34)
[2022-08-13] MEDS ORDERED: INSULIN GLARGINE 100 UNIT/ML SUBCUT SCH (21:00)
[2022-08-14] MEDS: ALBUTEROL/IPRATROPIUM 3 ML NEB RESP TX SCH ×2 (00:34→07:25)
[2022-08-14 04:56] LABS: Basophils % 0.1 % (0.0-0.8); Eosinophils # 0.1 10*3/uL (0.0-0.87); Eosinophils % 0.4 % (0.00-10.9); Hematocrit 40.4 VOL% (35.7-47.0); Hemoglobin 12.6 GM/DL (12.0-16.0); Immature Granulocytes % 1.9 %; Immature Granulocytes Absolute 0.25 #; Lymphocytes # 1.1 10*3/uL (1.4-4.0); Lymphocytes % 8.3 % (21.3-54.2); Mean Corpuscular HGB Conc 31.2 GM/DL (32-36); Mean Corpuscular Volume 102.5 FL (87-102); Mean Platelet Volume 11.1 FL (9.6-12.0); Monocytes # 1.2 10*3/uL (0.11-0.8); Monocytes % 9.2 % (1.7-12.7); Neutrophils % 80.1 % (38.7-73.9); Platelet Count 272 T/CUMM (130-400); Red Blood Count 3.94 MC/CUMM (3.8-5.5); Red Cell Distribution Width 18.5 % (9.3-17.3); White Blood Count 13.4 T/CUMM (4-12)
[2022-08-14] MEDS: ACETAMINOPHEN/CODEINE 300-30 MG TABLET PO PRN ×2 (05:03→11:13)
[2022-08-14 05:16] LABS: Calcium 8.6 MG/DL (8.5-10.1); Osmolality,Calculated 285.3 MOS/KG (273-304); Potassium 4.4 MMOL/L (3.5-5.1)
[2022-08-14] MEDS: PANTOPRAZOLE 40 MG VIAL IV SCH (06:00)
[2022-08-14] MEDS: LEVOTHYROXINE 125 MCG TABLET PO SCH (06:01)
[2022-08-14] MEDS: predniSONE 20 MG TABLET PO SCH (08:36)
[2022-08-14] MEDS: amLODIPine 10 MG TABLET PO SCH (08:36)
[2022-08-14] MEDS: POTASSIUM CHLORIDE 10 MEQ TABLET PO SCH (08:36)
[2022-08-14] MEDS: ASPIRIN CHEW 81 MG TABLET PO SCH (08:36)
[2022-08-14] MEDS: carvediloL 25 MG TABLET PO SCH (08:36)
[2022-08-14] MEDS: buPROPion SR 150 MG TABLET PO SCH (08:36)
[2022-08-14] MEDS: hydrALAZINE 25 MG TABLET PO SCH (08:37)
[2022-08-14] MEDS: INSULIN LISPRO 100 UNIT/ML SUBCUT SCH ×2 (08:37→11:27)
[2022-08-14] MEDS: ENOXAPARIN 40 MG/0.4 ML SYRINGE SUBCUT SCH (08:38)
[2022-08-14] MEDS: MULTIVITAMIN LIQUID (CENTRUM) 60 ML BOTTLE PO SCH (12:08)
== END 2022-08-14 13:34 | disposition swing bed (61) | DRG 207 ==
LOC: EDBD → EDUNIT# → N.ED 03:55 → SUATTDRO 04:55 → N.CC 04:55
PROVIDERS: ADMIT Family Medicine; ATTEND Internal Medicine

== ENCOUNTER 2022-09-15 07:52 | Inpatient (IN) ==
[2022-09-15 08:51] LABS: Arterial Base Excess iSTAT 6 MMOL/L (-2.5-2.5); Arterial Bicarbonate iSTAT 37.2 MMOL/L (20-26); Arterial O2 Saturation iSTAT 94 % (95-100); Arterial PCO2 iSTAT 89 MM HG (35-48); Arterial PO2 iSTAT 89 MM HG (80-95); Arterial Total CO2 iSTAT 40 MMO/L (23-27); Arterial pH iSTAT 7.231 (7.35-7.45)
[2022-09-15] MEDS ORDERED: ALBUTEROL 2.5 MG/3 ML NEB RESP TX STA (09:20)
[2022-09-15] MEDS ORDERED: methylPREDNISolone SOD SUC 125 MG/2 ML VIAL IV STA (09:20)
[2022-09-15 09:22] LABS: Basophils % 0.5 % (0.0-0.8); Eosinophils % 0.1 % (0.00-10.9); Hematocrit 42.7 VOL% (35.7-47.0); Hemoglobin 12.5 GM/DL (12.0-16.0); Immature Granulocytes % 1.2 %; Lymphocytes # 1.1 10*3/uL (1.4-4.0); Lymphocytes % 13.1 % (21.3-54.2); Mean Corpuscular HGB Conc 29.3 GM/DL (32-36); Mean Corpuscular Volume 108.9 FL (87-102); Mean Platelet Volume 10.2 FL (9.6-12.0); Monocytes # 0.4 10*3/uL (0.11-0.8); Monocytes % 5.1 % (1.7-12.7); NRBC # 0.03 10*3/uL; Red Blood Count 3.92 MC/CUMM (3.8-5.5); Red Cell Distribution Width 15.7 % (9.3-17.3); White Blood Count 8.3 T/CUMM (4-12)
[2022-09-15 09:28] LABS: Platelet Count 192 T/CUMM (130-400)
[2022-09-15 09:41] LABS: Amorphous Crystals,Urine Few /HPF (Few); Bilirubin,Urine Negative (Negative); Blood, Urine Negative (Negative); Glucose,Urine (UA) Negative (Negative); Hyaline Casts,Urine 60 /LPF (0-3); Ketones,Urine Negative (Negative); Mucus,Urine Moderate /LPF (Occasional); Nitrite,Urine Negative (Negative); Protein,Urine 30 mg/dL (Negative); RBC,Urine 1 /HPF (0-4); Urine Appearance Clear (Clear); Urine Color Yellow (Yellow); Urine Specific Gravity > 1.030 (1.001-1.035); Urine Urobilinogen 0.2 eU/dL (<2.0); Urine pH 5.5 (4.5-8.0)
[2022-09-15 09:43] LABS: Alanine Aminotransferase 39 U/L (13-56); Albumin 3.3 G/DL (3.4-5.0); Alkaline Phosphatase 112 U/L (45-117); Aspartate Amino Transferase 37 U/L (0-37); Bilirubin,Total < 0.39 MG/DL (0.20-1.00); Blood Urea Nitrogen 19 MG/DL (7-18); Calcium 8.5 MG/DL (8.5-10.1); Carbon Dioxide 31 MMOL/L (21-32); Chloride 102 MMOL/L (98-107); Glucose 126 MG/DL (74-106); Total Protein 6.7 G/DL (6.4-8.2)
[2022-09-15 09:58] LABS: Osmolality,Calculated 278.7 MOS/KG (273-304); Potassium 5.9 MMOL/L (3.5-5.1); Sodium 138 MMOL/L (136-145)
[2022-09-15 10:09] LABS: Barbiturates Screen,Urine Negative (Negative); Benzodiazepines Screen,Urine Negative (Negative); Cannabinoid Screen,Urine Negative (Negative); Opiate Screen,Urine Positive (Negative); Phencyclidine Screen,Urine Negative (Negative)
[2022-09-15] MEDS ORDERED: ALBUTEROL/IPRATROPIUM 3 ML NEB RESP TX PRN (13:43)
[2022-09-15] MEDS ORDERED: SKIN HEALING OINT (AQUAPHOR) 50 GM TUBE TOP PRN (13:43)
[2022-09-15] MEDS ORDERED: ACETAMINOPHEN 325 MG TABLET PO PRN (13:43)
[2022-09-15] MEDS ORDERED: HALOPERIDOL DECANOATE 50 MG/ML IM SCH (13:45)
[2022-09-15] MEDS ORDERED: GLUCAGON 1 MG VIAL IM PRN (14:04)
[2022-09-15] MEDS ORDERED: DEXTROSE 10% 250 ML BAG IV PRN (14:19)
[2022-09-15] MEDS: methylPREDNISolone SOD SUC 125 MG/2 ML VIAL IV SCH ×2 (14:55→23:42)
[2022-09-15] MEDS: ACETAMINOPHEN/CODEINE 300-30 MG TABLET PO PRN (17:09)
[2022-09-15] MEDS: INSULIN LISPRO 100 UNIT/ML SUBCUT SCH (19:13)
[2022-09-15] MEDS: carvediloL 25 MG TABLET PO SCH (23:12)
[2022-09-15] MEDS: ATORVASTATIN 80 MG TABLET PO SCH (23:13)
[2022-09-15] MEDS: QUEtiapine 100 MG TABLET PO SCH (23:13)
[2022-09-15] MEDS: buPROPion SR 150 MG TABLET PO SCH (23:13)
[2022-09-15] MEDS: hydrALAZINE 25 MG TABLET PO SCH (23:14)
[2022-09-16] MEDS: INSULIN LISPRO 100 UNIT/ML SUBCUT SCH ×7 (00:01→21:41)
[2022-09-16] MEDS: DESITIN 4OZ/NYSTATIN 15 GRAM MIXTURE PASTE TOP SCH ×2 (00:02→15:16)
[2022-09-16] MEDS: methylPREDNISolone SOD SUC 125 MG/2 ML VIAL IV SCH ×3 (05:49→21:37)
[2022-09-16] MEDS: ACETAMINOPHEN/CODEINE 300-30 MG TABLET PO PRN ×3 (06:00→21:35)
[2022-09-16] MEDS: LEVOTHYROXINE 125 MCG TABLET PO SCH (07:04)
[2022-09-16] MEDS ORDERED: GLUCAGON 1 MG VIAL IM PRN (08:28)
[2022-09-16] MEDS ORDERED: DEXTROSE 50% 25 GM/50 ML VIAL IV PRN (08:28)
[2022-09-16] MEDS: carvediloL 25 MG TABLET PO SCH ×2 (08:43→21:35)
[2022-09-16] MEDS: LOSARTAN 25 MG TABLET PO SCH (08:43)
[2022-09-16] MEDS: FUROSEMIDE 20 MG TABLET PO SCH (08:43)
[2022-09-16] MEDS: amLODIPine 10 MG TABLET PO SCH (08:43)
[2022-09-16] MEDS: ASPIRIN CHEW 81 MG TABLET PO SCH (08:43)
[2022-09-16] MEDS: hydrALAZINE 25 MG TABLET PO SCH ×2 (08:43→21:35)
[2022-09-16] MEDS: buPROPion SR 150 MG TABLET PO SCH ×2 (08:43→21:35)
[2022-09-16] MEDS: MULTIVITAMIN LIQUID (CENTRUM) 60 ML BOTTLE PO SCH (08:44)
[2022-09-16] MEDS ORDERED: guaiFENesin/CODEINE 5 ML LIQUID PO PRN (20:19)
[2022-09-16] MEDS: ATORVASTATIN 80 MG TABLET PO SCH (21:35)
[2022-09-16] MEDS: QUEtiapine 100 MG TABLET PO SCH (21:35)
[2022-09-17] MEDS: DESITIN 4OZ/NYSTATIN 15 GRAM MIXTURE PASTE TOP SCH ×4 (00:46→20:27)
[2022-09-17] MEDS: INSULIN LISPRO 100 UNIT/ML SUBCUT SCH ×6 (04:21→21:37)
[2022-09-17] MEDS: ACETAMINOPHEN/CODEINE 300-30 MG TABLET PO PRN ×4 (04:23→20:21)
[2022-09-17] MEDS: LEVOTHYROXINE 125 MCG TABLET PO SCH (05:08)
[2022-09-17] MEDS: methylPREDNISolone SOD SUC 125 MG/2 ML VIAL IV SCH ×3 (05:08→21:37)
[2022-09-17] MEDS: ASPIRIN CHEW 81 MG TABLET PO SCH ×2 (07:45→08:43)
[2022-09-17] MEDS: LOSARTAN 25 MG TABLET PO SCH ×2 (07:45→08:44)
[2022-09-17] MEDS: carvediloL 25 MG TABLET PO SCH ×3 (07:45→20:22)
[2022-09-17] MEDS: FUROSEMIDE 20 MG TABLET PO SCH ×2 (07:45→08:44)
[2022-09-17] MEDS: hydrALAZINE 25 MG TABLET PO SCH ×3 (07:45→20:22)
[2022-09-17] MEDS: amLODIPine 10 MG TABLET PO SCH ×2 (07:46→08:44)
[2022-09-17] MEDS: buPROPion SR 150 MG TABLET PO SCH ×3 (07:46→20:22)
[2022-09-17] MEDS: MULTIVITAMIN LIQUID (CENTRUM) 60 ML BOTTLE PO SCH (12:34)
[2022-09-17] MEDS: ATORVASTATIN 80 MG TABLET PO SCH (20:22)
[2022-09-17] MEDS: QUEtiapine 100 MG TABLET PO SCH (20:22)
[2022-09-18] MEDS: INSULIN LISPRO 100 UNIT/ML SUBCUT SCH ×5 (00:45→20:26)
[2022-09-18] MEDS: ACETAMINOPHEN/CODEINE 300-30 MG TABLET PO PRN ×5 (01:09→20:17)
[2022-09-18] MEDS: methylPREDNISolone SOD SUC 125 MG/2 ML VIAL IV SCH ×3 (05:53→21:16)
[2022-09-18] MEDS: LEVOTHYROXINE 125 MCG TABLET PO SCH (05:53)
[2022-09-18] MEDS: ASPIRIN CHEW 81 MG TABLET PO SCH (09:34)
[2022-09-18] MEDS: amLODIPine 10 MG TABLET PO SCH (09:34)
[2022-09-18] MEDS: FUROSEMIDE 20 MG TABLET PO SCH (09:34)
[2022-09-18] MEDS: hydrALAZINE 25 MG TABLET PO SCH ×2 (09:34→20:16)
[2022-09-18] MEDS: buPROPion SR 150 MG TABLET PO SCH ×2 (09:34→20:16)
[2022-09-18] MEDS: MULTIVITAMIN (CENTRUM) TABLET PO SCH (09:34)
[2022-09-18] MEDS: LOSARTAN 25 MG TABLET PO SCH (09:34)
[2022-09-18] MEDS: carvediloL 25 MG TABLET PO SCH ×2 (09:34→20:17)
[2022-09-18] MEDS: DESITIN 4OZ/NYSTATIN 15 GRAM MIXTURE PASTE TOP SCH ×2 (09:38→20:28)
[2022-09-18] MEDS: ENOXAPARIN 40 MG/0.4 ML SYRINGE SUBCUT SCH (12:46)
[2022-09-18] MEDS: QUEtiapine 100 MG TABLET PO SCH (20:17)
[2022-09-18] MEDS: ATORVASTATIN 80 MG TABLET PO SCH (20:17)
[2022-09-19] MEDS: ACETAMINOPHEN/CODEINE 300-30 MG TABLET PO PRN ×4 (01:34→21:31)
[2022-09-19] MEDS: LEVOTHYROXINE 125 MCG TABLET PO SCH (05:45)
[2022-09-19] MEDS: methylPREDNISolone SOD SUC 125 MG/2 ML VIAL IV SCH ×3 (05:46→21:33)
[2022-09-19 09:22] LABS: Basophils % 0.2 % (0.0-0.8); Hematocrit 43.5 VOL% (35.7-47.0); Hemoglobin 13.4 GM/DL (12.0-16.0); Immature Granulocytes % 1.7 %; Immature Granulocytes Absolute 0.28 #; Lymphocytes % 6.3 % (21.3-54.2); Mean Corpuscular HGB Conc 30.8 GM/DL (32-36); Mean Corpuscular Volume 104.1 FL (87-102); Mean Platelet Volume 9.6 FL (9.6-12.0); Monocytes # 0.9 10*3/uL (0.11-0.8); Monocytes % 5.7 % (1.7-12.7); NRBC # 0.03 10*3/uL; Neutrophils % 86.1 % (38.7-73.9); Platelet Count 302 T/CUMM (130-400); Red Blood Count 4.18 MC/CUMM (3.8-5.5); Red Cell Distribution Width 15.6 % (9.3-17.3); White Blood Count 16.5 T/CUMM (4-12)
[2022-09-19] MEDS: ASPIRIN CHEW 81 MG TABLET PO SCH (09:43)
[2022-09-19] MEDS: amLODIPine 10 MG TABLET PO SCH (09:43)
[2022-09-19] MEDS: FUROSEMIDE 20 MG TABLET PO SCH (09:43)
[2022-09-19] MEDS: buPROPion SR 150 MG TABLET PO SCH ×2 (09:43→21:31)
[2022-09-19] MEDS: MULTIVITAMIN (CENTRUM) TABLET PO SCH (09:43)
[2022-09-19] MEDS: LOSARTAN 25 MG TABLET PO SCH (09:43)
[2022-09-19] MEDS: carvediloL 25 MG TABLET PO SCH ×2 (09:43→21:31)
[2022-09-19] MEDS: INSULIN LISPRO 100 UNIT/ML SUBCUT SCH ×4 (09:43→21:32)
[2022-09-19] MEDS: hydrALAZINE 25 MG TABLET PO SCH ×2 (09:43→21:31)
[2022-09-19] MEDS: DESITIN 4OZ/NYSTATIN 15 GRAM MIXTURE PASTE TOP SCH ×2 (09:44→21:32)
[2022-09-19 09:47] LABS: Alanine Aminotransferase 50 U/L (13-56); Albumin 2.9 G/DL (3.4-5.0); Alkaline Phosphatase 94 U/L (45-117); Aspartate Amino Transferase 21 U/L (0-37); Bilirubin,Total < 0.39 MG/DL (0.20-1.00); Blood Urea Nitrogen 19 MG/DL (7-18); Calcium 8.4 MG/DL (8.5-10.1); Carbon Dioxide 38 MMOL/L (21-32); Chloride 97 MMOL/L (98-107); Glucose 335 MG/DL (74-106); Osmolality,Calculated 287.8 MOS/KG (273-304); Potassium 5.1 MMOL/L (3.5-5.1); Sodium 137 MMOL/L (136-145); Total Protein 6.5 G/DL (6.4-8.2)
[2022-09-19] MEDS: ENOXAPARIN 40 MG/0.4 ML SYRINGE SUBCUT SCH (11:47)
[2022-09-19] MEDS: ATORVASTATIN 80 MG TABLET PO SCH (21:31)
[2022-09-19] MEDS: QUEtiapine 100 MG TABLET PO SCH (21:31)
[2022-09-20] MEDS: ACETAMINOPHEN/CODEINE 300-30 MG TABLET PO PRN ×4 (03:09→21:00)
[2022-09-20 05:24] LABS: Basophils % 0.2 % (0.0-0.8); Hematocrit 44.1 VOL% (35.7-47.0); Hemoglobin 13.5 GM/DL (12.0-16.0); Immature Granulocytes Absolute 0.33 #; Lymphocytes # 0.9 10*3/uL (1.4-4.0); Lymphocytes % 5.5 % (21.3-54.2); Mean Corpuscular HGB Conc 30.6 GM/DL (32-36); Mean Corpuscular Volume 103.5 FL (87-102); Mean Platelet Volume 9.8 FL (9.6-12.0); Monocytes # 0.9 10*3/uL (0.11-0.8); Monocytes % 5.5 % (1.7-12.7); NRBC # 0.03 10*3/uL; Neutrophils % 86.8 % (38.7-73.9); Platelet Count 326 T/CUMM (130-400); Red Blood Count 4.26 MC/CUMM (3.8-5.5); Red Cell Distribution Width 15.7 % (9.3-17.3); White Blood Count 16.5 T/CUMM (4-12)
[2022-09-20 06:03] LABS: Alanine Aminotransferase 60 U/L (13-56); Albumin 2.9 G/DL (3.4-5.0); Alkaline Phosphatase 94 U/L (45-117); Aspartate Amino Transferase 29 U/L (0-37); Bilirubin,Total < 0.39 MG/DL (0.20-1.00); Blood Urea Nitrogen 22 MG/DL (7-18); Calcium 8.6 MG/DL (8.5-10.1); Carbon Dioxide 40 MMOL/L (21-32); Chloride 96 MMOL/L (98-107); Glucose 295 MG/DL (74-106); Osmolality,Calculated 286.8 MOS/KG (273-304); Potassium 4.6 MMOL/L (3.5-5.1); Sodium 137 MMOL/L (136-145); Total Protein 6.5 G/DL (6.4-8.2)
[2022-09-20] MEDS: LEVOTHYROXINE 125 MCG TABLET PO SCH (06:08)
[2022-09-20] MEDS: methylPREDNISolone SOD SUC 125 MG/2 ML VIAL IV SCH (06:09)
[2022-09-20] MEDS: ASPIRIN CHEW 81 MG TABLET PO SCH (09:48)
[2022-09-20] MEDS: LOSARTAN 25 MG TABLET PO SCH (09:48)
[2022-09-20] MEDS: hydrALAZINE 25 MG TABLET PO SCH ×2 (09:48→21:00)
[2022-09-20] MEDS: FUROSEMIDE 20 MG TABLET PO SCH (09:48)
[2022-09-20] MEDS: buPROPion SR 150 MG TABLET PO SCH ×2 (09:48→21:01)
[2022-09-20] MEDS: MULTIVITAMIN (CENTRUM) TABLET PO SCH (09:48)
[2022-09-20] MEDS: amLODIPine 10 MG TABLET PO SCH (09:48)
[2022-09-20] MEDS: carvediloL 25 MG TABLET PO SCH ×2 (09:48→21:00)
[2022-09-20] MEDS: INSULIN LISPRO 100 UNIT/ML SUBCUT SCH ×4 (09:49→20:59)
[2022-09-20] MEDS: ENOXAPARIN 40 MG/0.4 ML SYRINGE SUBCUT SCH (12:47)
[2022-09-20] MEDS: DESITIN 4OZ/NYSTATIN 15 GRAM MIXTURE PASTE TOP SCH ×2 (16:12→21:01)
[2022-09-20] MEDS ORDERED: methylPREDNISolone SOD SUC 125 MG/2 ML VIAL IV SCH (18:00)
[2022-09-20] MEDS ORDERED: methylPREDNISolone SOD SUC 40 MG/1 ML VIAL ONE (18:46)
[2022-09-20] MEDS: QUEtiapine 100 MG TABLET PO SCH (21:00)
[2022-09-20] MEDS: ATORVASTATIN 80 MG TABLET PO SCH (21:01)
[2022-09-21] MEDS: ACETAMINOPHEN/CODEINE 300-30 MG TABLET PO PRN ×5 (02:16→21:59)
[2022-09-21 03:58] LABS: Basophils % 0.2 % (0.0-0.8); Hematocrit 43.4 VOL% (35.7-47.0); Hemoglobin 13.6 GM/DL (12.0-16.0); Immature Granulocytes % 2.4 %; Immature Granulocytes Absolute 0.42 #; Lymphocytes # 0.9 10*3/uL (1.4-4.0); Mean Corpuscular HGB Conc 31.3 GM/DL (32-36); Mean Corpuscular Volume 102.8 FL (87-102); Mean Platelet Volume 9.5 FL (9.6-12.0); Monocytes % 5.5 % (1.7-12.7); NRBC # 0.02 10*3/uL; Neutrophils % 86.9 % (38.7-73.9); Platelet Count 323 T/CUMM (130-400); Red Blood Count 4.22 MC/CUMM (3.8-5.5); Red Cell Distribution Width 15.6 % (9.3-17.3); White Blood Count 17.8 T/CUMM (4-12)
[2022-09-21 04:32] LABS: Alanine Aminotransferase 59 U/L (13-56); Albumin 2.8 G/DL (3.4-5.0); Alkaline Phosphatase 102 U/L (45-117); Aspartate Amino Transferase 23 U/L (0-37); Bilirubin,Total < 0.39 MG/DL (0.20-1.00); Blood Urea Nitrogen 26 MG/DL (7-18); Calcium 8.7 MG/DL (8.5-10.1); Carbon Dioxide 39 MMOL/L (21-32); Chloride 96 MMOL/L (98-107); Glucose 315 MG/DL (74-106); Osmolality,Calculated 284.2 MOS/KG (273-304); Potassium 4.9 MMOL/L (3.5-5.1); Sodium 134 MMOL/L (136-145); Total Protein 6.3 G/DL (6.4-8.2)
[2022-09-21] MEDS: LEVOTHYROXINE 125 MCG TABLET PO SCH (05:42)
[2022-09-21] MEDS: methylPREDNISolone SOD SUC 40 MG/1 ML VIAL IV SCH ×2 (05:42→17:00)
[2022-09-21] MEDS: LOSARTAN 25 MG TABLET PO SCH (08:01)
[2022-09-21] MEDS: buPROPion SR 150 MG TABLET PO SCH ×2 (08:01→21:59)
[2022-09-21] MEDS: ASPIRIN CHEW 81 MG TABLET PO SCH (08:01)
[2022-09-21] MEDS: amLODIPine 10 MG TABLET PO SCH (08:01)
[2022-09-21] MEDS: carvediloL 25 MG TABLET PO SCH ×2 (08:01→22:00)
[2022-09-21] MEDS: hydrALAZINE 25 MG TABLET PO SCH ×2 (08:02→21:59)
[2022-09-21] MEDS: MULTIVITAMIN (CENTRUM) TABLET PO SCH (08:02)
[2022-09-21] MEDS: FUROSEMIDE 20 MG TABLET PO SCH (08:02)
[2022-09-21] MEDS: DESITIN 4OZ/NYSTATIN 15 GRAM MIXTURE PASTE TOP SCH ×2 (08:02→22:00)
[2022-09-21] MEDS: INSULIN LISPRO 100 UNIT/ML SUBCUT SCH ×4 (08:02→22:01)
[2022-09-21] MEDS: ENOXAPARIN 40 MG/0.4 ML SYRINGE SUBCUT SCH (12:12)
[2022-09-21] MEDS: ATORVASTATIN 80 MG TABLET PO SCH (21:59)
[2022-09-21] MEDS: QUEtiapine 100 MG TABLET PO SCH (21:59)
[2022-09-22] MEDS: ACETAMINOPHEN/CODEINE 300-30 MG TABLET PO PRN ×4 (04:31→20:27)
[2022-09-22 04:50] LABS: Basophils # 0.1 10*3/uL (0.0-0.2); Basophils % 0.4 % (0.0-0.8); Hematocrit 43.1 VOL% (35.7-47.0); Hemoglobin 13.3 GM/DL (12.0-16.0); Immature Granulocytes % 2.5 %; Lymphocytes # 0.9 10*3/uL (1.4-4.0); Lymphocytes % 5.8 % (21.3-54.2); Mean Corpuscular HGB Conc 30.9 GM/DL (32-36); Mean Corpuscular Volume 104.6 FL (87-102); Mean Platelet Volume 9.4 FL (9.6-12.0); Monocytes # 1.3 10*3/uL (0.11-0.8); Monocytes % 8.4 % (1.7-12.7); NRBC # 0.02 10*3/uL; Neutrophils % 82.9 % (38.7-73.9); Platelet Count 307 T/CUMM (130-400); Red Blood Count 4.12 MC/CUMM (3.8-5.5); Red Cell Distribution Width 15.9 % (9.3-17.3); White Blood Count 15.7 T/CUMM (4-12)
[2022-09-22 05:26] LABS: Chloride 96 MMOL/L (98-107); Sodium 136 MMOL/L (136-145)
[2022-09-22 05:28] LABS: Calcium 8.6 MG/DL (8.5-10.1)
[2022-09-22 05:29] LABS: Albumin 2.8 G/DL (3.4-5.0); Blood Urea Nitrogen 25 MG/DL (7-18); Carbon Dioxide 38 MMOL/L (21-32)
[2022-09-22 05:30] LABS: Glucose 310 MG/DL (74-106)
[2022-09-22 05:32] LABS: Alanine Aminotransferase 64 U/L (13-56)
[2022-09-22 05:33] LABS: Aspartate Amino Transferase 30 U/L (0-37)
[2022-09-22 05:34] LABS: Bilirubin,Total < 0.39 MG/DL (0.20-1.00); Total Protein 6.3 G/DL (6.4-8.2)
[2022-09-22 05:36] LABS: Alkaline Phosphatase 116 U/L (45-117)
[2022-09-22] MEDS: LEVOTHYROXINE 125 MCG TABLET PO SCH (06:40)
[2022-09-22] MEDS: methylPREDNISolone SOD SUC 40 MG/1 ML VIAL IV SCH (06:40)
[2022-09-22] MEDS: ASPIRIN CHEW 81 MG TABLET PO SCH (09:27)
[2022-09-22] MEDS: hydrALAZINE 25 MG TABLET PO SCH ×2 (09:28→20:17)
[2022-09-22] MEDS: LOSARTAN 25 MG TABLET PO SCH (09:29)
[2022-09-22] MEDS: FUROSEMIDE 20 MG TABLET PO SCH (09:29)
[2022-09-22] MEDS: buPROPion SR 150 MG TABLET PO SCH ×2 (09:30→20:17)
[2022-09-22] MEDS: carvediloL 25 MG TABLET PO SCH ×2 (09:30→20:18)
[2022-09-22] MEDS: amLODIPine 10 MG TABLET PO SCH (09:31)
[2022-09-22] MEDS: MULTIVITAMIN (CENTRUM) TABLET PO SCH (09:31)
[2022-09-22] MEDS: INSULIN LISPRO 100 UNIT/ML SUBCUT SCH ×4 (09:32→20:17)
[2022-09-22] MEDS: DESITIN 4OZ/NYSTATIN 15 GRAM MIXTURE PASTE TOP SCH ×2 (09:33→20:39)
[2022-09-22] MEDS: ENOXAPARIN 40 MG/0.4 ML SYRINGE SUBCUT SCH (11:54)
[2022-09-22] MEDS: INSULIN GLARGINE 100 UNIT/ML SUBCUT SCH (20:17)
[2022-09-22] MEDS: ATORVASTATIN 80 MG TABLET PO SCH (20:17)
[2022-09-22] MEDS: QUEtiapine 100 MG TABLET PO SCH (20:17)
[2022-09-23] MEDS: ACETAMINOPHEN/CODEINE 300-30 MG TABLET PO PRN ×3 (04:06→23:21)
[2022-09-23] MEDS: LEVOTHYROXINE 125 MCG TABLET PO SCH (05:19)
[2022-09-23 05:40] LABS: Alanine Aminotransferase 57 U/L (13-56); Albumin 2.9 G/DL (3.4-5.0); Alkaline Phosphatase 90 U/L (45-117); Aspartate Amino Transferase 16 U/L (0-37); Bilirubin,Total < 0.39 MG/DL (0.20-1.00); Blood Urea Nitrogen 22 MG/DL (7-18); Calcium 8.1 MG/DL (8.5-10.1); Carbon Dioxide 39 MMOL/L (21-32); Chloride 96 MMOL/L (98-107); Glucose 171 MG/DL (74-106); Osmolality,Calculated 281.7 MOS/KG (273-304); Potassium 4.5 MMOL/L (3.5-5.1); Sodium 138 MMOL/L (136-145)
[2022-09-23 06:07] LABS: Basophils # 0.1 10*3/uL (0.0-0.2); Basophils % 0.3 % (0.0-0.8); Eosinophils # 0.1 10*3/uL (0.0-0.87); Eosinophils % 0.5 % (0.00-10.9); Hemoglobin 13.1 GM/DL (12.0-16.0); Immature Granulocytes Absolute 0.31 #; Lymphocytes # 1.3 10*3/uL (1.4-4.0); Lymphocytes % 8.5 % (21.3-54.2); Mean Corpuscular HGB Conc 30.2 GM/DL (32-36); Mean Corpuscular Volume 106.1 FL (87-102); Mean Platelet Volume 9.5 FL (9.6-12.0); Monocytes # 1.4 10*3/uL (0.11-0.8); Monocytes % 9.2 % (1.7-12.7); Neutrophils % 79.5 % (38.7-73.9); Platelet Count 294 T/CUMM (130-400); Red Blood Count 4.09 MC/CUMM (3.8-5.5); Red Cell Distribution Width 15.8 % (9.3-17.3); White Blood Count 15.3 T/CUMM (4-12)
[2022-09-23 06:09] LABS: Hematocrit 43.4 VOL% (35.7-47.0)
[2022-09-23] MEDS: INSULIN LISPRO 100 UNIT/ML SUBCUT SCH ×4 (07:58→21:41)
[2022-09-23] MEDS: amLODIPine 10 MG TABLET PO SCH (09:07)
[2022-09-23] MEDS: predniSONE 20 MG TABLET PO SCH (09:07)
[2022-09-23] MEDS: ASPIRIN CHEW 81 MG TABLET PO SCH (09:07)
[2022-09-23] MEDS: buPROPion SR 150 MG TABLET PO SCH ×2 (09:07→21:20)
[2022-09-23] MEDS: hydrALAZINE 25 MG TABLET PO SCH ×2 (09:07→21:18)
[2022-09-23] MEDS: LOSARTAN 25 MG TABLET PO SCH (09:07)
[2022-09-23] MEDS: MULTIVITAMIN (CENTRUM) TABLET PO SCH (09:07)
[2022-09-23] MEDS: FUROSEMIDE 20 MG TABLET PO SCH (09:07)
[2022-09-23] MEDS: carvediloL 25 MG TABLET PO SCH ×2 (09:07→21:20)
[2022-09-23] MEDS: DESITIN 4OZ/NYSTATIN 15 GRAM MIXTURE PASTE TOP SCH ×2 (09:10→21:20)
[2022-09-23] MEDS: ENOXAPARIN 40 MG/0.4 ML SYRINGE SUBCUT SCH (11:38)
[2022-09-23] MEDS: INSULIN GLARGINE 100 UNIT/ML SUBCUT SCH (21:19)
[2022-09-23] MEDS: ATORVASTATIN 80 MG TABLET PO SCH (21:20)
[2022-09-23] MEDS: QUEtiapine 100 MG TABLET PO SCH (21:20)
[2022-09-24] MEDS: LEVOTHYROXINE 125 MCG TABLET PO SCH (05:18)
[2022-09-24] MEDS: ACETAMINOPHEN/CODEINE 300-30 MG TABLET PO PRN ×4 (05:23→21:12)
[2022-09-24 05:41] LABS: Basophils % 0.2 % (0.0-0.8); Eosinophils # 0.1 10*3/uL (0.0-0.87); Eosinophils % 0.8 % (0.00-10.9); Immature Granulocytes % 2.1 %; Immature Granulocytes Absolute 0.28 #; Lymphocytes # 1.2 10*3/uL (1.4-4.0); Lymphocytes % 9.4 % (21.3-54.2); Mean Corpuscular HGB Conc 30.2 GM/DL (32-36); Mean Corpuscular Volume 104.6 FL (87-102); Mean Platelet Volume 9.1 FL (9.6-12.0); Monocytes # 1.3 10*3/uL (0.11-0.8); Monocytes % 9.9 % (1.7-12.7); Neutrophils % 77.6 % (38.7-73.9); Platelet Count 251 T/CUMM (130-400); Red Blood Count 4.11 MC/CUMM (3.8-5.5); Red Cell Distribution Width 15.6 % (9.3-17.3); White Blood Count 13.2 T/CUMM (4-12)
[2022-09-24 06:01] LABS: Albumin 2.7 G/DL (3.4-5.0); Bilirubin,Total 0.4 MG/DL (0.20-1.00); Calcium 8.3 MG/DL (8.5-10.1); Total Protein 5.9 G/DL (6.4-8.2)
[2022-09-24 06:07] LABS: Osmolality,Calculated 280.7 MOS/KG (273-304)
[2022-09-24] MEDS: INSULIN LISPRO 100 UNIT/ML SUBCUT SCH ×4 (08:28→21:54)
[2022-09-24] MEDS: carvediloL 25 MG TABLET PO SCH ×2 (08:28→21:11)
[2022-09-24] MEDS: ASPIRIN CHEW 81 MG TABLET PO SCH (08:29)
[2022-09-24] MEDS: LOSARTAN 25 MG TABLET PO SCH (08:29)
[2022-09-24] MEDS: FUROSEMIDE 20 MG TABLET PO SCH (08:29)
[2022-09-24] MEDS: MULTIVITAMIN (CENTRUM) TABLET PO SCH (08:29)
[2022-09-24] MEDS: amLODIPine 10 MG TABLET PO SCH (08:29)
[2022-09-24] MEDS: buPROPion SR 150 MG TABLET PO SCH ×2 (08:29→21:11)
[2022-09-24] MEDS: predniSONE 20 MG TABLET PO SCH (08:29)
[2022-09-24] MEDS: DESITIN 4OZ/NYSTATIN 15 GRAM MIXTURE PASTE TOP SCH ×2 (08:30→21:11)
[2022-09-24] MEDS: hydrALAZINE 25 MG TABLET PO SCH ×2 (08:34→21:11)
[2022-09-24] MEDS: ENOXAPARIN 40 MG/0.4 ML SYRINGE SUBCUT SCH (12:09)
[2022-09-24] MEDS: QUEtiapine 100 MG TABLET PO SCH (21:11)
[2022-09-24] MEDS: ATORVASTATIN 80 MG TABLET PO SCH (21:11)
[2022-09-24] MEDS: INSULIN GLARGINE 100 UNIT/ML SUBCUT SCH (21:55)
[2022-09-25] MEDS: ACETAMINOPHEN/CODEINE 300-30 MG TABLET PO PRN ×2 (02:14→10:42)
[2022-09-25] MEDS: LEVOTHYROXINE 125 MCG TABLET PO SCH (05:05)
[2022-09-25] MEDS: INSULIN LISPRO 100 UNIT/ML SUBCUT SCH ×2 (10:35→13:46)
[2022-09-25] MEDS: ASPIRIN CHEW 81 MG TABLET PO SCH (10:36)
[2022-09-25] MEDS: hydrALAZINE 25 MG TABLET PO SCH (10:36)
[2022-09-25] MEDS: MULTIVITAMIN (CENTRUM) TABLET PO SCH (10:36)
[2022-09-25] MEDS: carvediloL 25 MG TABLET PO SCH (10:37)
[2022-09-25] MEDS: LOSARTAN 25 MG TABLET PO SCH (10:37)
[2022-09-25] MEDS: buPROPion SR 150 MG TABLET PO SCH (10:38)
[2022-09-25] MEDS: predniSONE 20 MG TABLET PO SCH (10:38)
[2022-09-25] MEDS: DESITIN 4OZ/NYSTATIN 15 GRAM MIXTURE PASTE TOP SCH (10:38)
[2022-09-25] MEDS: amLODIPine 10 MG TABLET PO SCH (10:38)
[2022-09-25] MEDS: FUROSEMIDE 20 MG TABLET PO SCH (10:41)
[2022-09-25] MEDS: ENOXAPARIN 40 MG/0.4 ML SYRINGE SUBCUT SCH (11:15)
[2022-09-25 12:37] VITALS: BP 98/53
[2022-09-25] MEDS ORDERED: HALOPERIDOL DECANOATE 50 MG/1 ML VIAL IM SCH (13:00)
== END 2022-09-25 16:32 | DRG 189 ==
LOC: N.ED 07:52 → SUATTDRO 13:42 → N.EDINP 13:42 → N.TELES 16:16 → N.5E 18:27
PROVIDERS: ADMIT Internal Medicine; ATTEND Emergency Medicine